=== PATIENT | male | born 1960 | race Caucasian/White ===

== ENCOUNTER 2016-09-26 08:31 | Emergency (ER) | payer MEDICARE, OTHER ==
[~2016-09-26 08:31] MED LIST: ALPRAZOLAM PO; AMLODIPINE BESYL5 MG PO; BLOOD PRESSURE PILL; FAMVIR500 MG PO; FLEXERIL PO; FLEXERIL10 MG PO; KEFLEX PO; KETOPROFEN PO; LITHIUM; LITHIUM PO; LORTAB 10-5001 EACH PO; LORTAB 5/500 TA1 TA1 PO; MORPHINE IR PO; MOTRIN600 MG PO; NAMENDA10 MG PO; NAPROSYN500 MG PO; NO MEDICATIONS; NORVASC PO; NORVASC10 MG PO; PERCOCET 7.5/501 TA1 PO; PREDNISONE PO; TUMS500 MG; ZESTRIL10 MG PO
== END 2016-09-26 08:48 | disposition home or self-care (01) ==
LOC: SED 08:31
DX: L27.0 Generalized skin eruption due to drugs and medicaments taken internally (principal); T46.4X5A Adverse effect of angiotensin-converting-enzyme inhibitors, initial encounter; I10 Essential (primary) hypertension; K21.9 Gastro-esophageal reflux disease without esophagitis; F17.200 Nicotine dependence, unspecified, uncomplicated; Z79.899 Other long term (current) drug therapy
CPT/HCPCS: 99283